=== PATIENT | male | born 1980 | race Caucasian/White ===

== ENCOUNTER 2018-09-30 15:52 | Emergency (ER) | payer SELFPAY ==
[2018-09-30 16:36] VITALS: BP 112/78; PULSE 89; RESP 18; TEMP 98; O2SAT 99
== END 2018-09-30 16:32 | disposition left against medical advice (07) ==
LOC: C.ER 15:52
DX: Z02.89 Encounter for other administrative examinations (principal); K62.89 Other specified diseases of anus and rectum